=== PATIENT | female | born 1980 | race Two or more races ===

== ENCOUNTER → 2020-10-12 15:00 | Outpatient (CLI) | payer OTHER | END | disposition home or self-care (01) | LOC: PPH VACUNA 15:00 | DX: Z23 Encounter for immunization (principal) ==

== ENCOUNTER 2020-11-02 08:00 | Outpatient (CLI) | payer OTHER | END 2020-11-02 08:30 | disposition home or self-care (01) | LOC: PPH VACUNA 08:00 | DX: Z23 Encounter for immunization (principal) ==

== ENCOUNTER 2021-06-16 15:00 | Outpatient (CLI) | payer OTHER | END 2021-06-16 15:10 | disposition home or self-care (01) | LOC: PPH VACUNA 15:00 | PROVIDERS: ATTEND Emergency Medicine Pediatric Emergency Medicine | DX: Z23 Encounter for immunization (principal) ==

== ENCOUNTER 2022-09-14 14:05 | Outpatient (CLI) | payer OTHER | END 2022-09-14 16:45 | disposition home or self-care (01) | LOC: PRENATAL 14:05 | PROVIDERS: ATTEND Obstetrics & Gynecology Maternal & Fetal Medicine | DX: O35.9XX0 Maternal care for (suspected) fetal abnormality and damage, unspecified, not applicable or unspecified (principal); O40.1XX0 Polyhydramnios, first trimester, not applicable or unspecified; O09.529 Supervision of elderly multigravida, unspecified trimester; Z3A.21 21 weeks gestation of pregnancy ==

== ENCOUNTER 2022-10-14 11:25 | Outpatient (CLI) | payer OTHER | END 2022-10-14 15:00 | disposition home or self-care (01) | LOC: PRENATAL 11:25 | PROVIDERS: ATTEND Obstetrics & Gynecology Maternal & Fetal Medicine | DX: O26.849 Uterine size-date discrepancy, unspecified trimester (principal); O36.8199 Decreased fetal movements, unspecified trimester, other fetus; O09.529 Supervision of elderly multigravida, unspecified trimester; O40.1XX0 Polyhydramnios, first trimester, not applicable or unspecified; O28.5 Abnormal chromosomal and genetic finding on antenatal screening of mother; Z3A.35 35 weeks gestation of pregnancy ==

== ENCOUNTER 2022-11-03 10:33 | Inpatient (IN) | payer OTHER ==
[~2022-11-03] VITALS: Ht 154.9 cm; Wt 2.7 kg
[2022-11-03] MEDS ORDERED: FOLIC ACID20 MG PO (12:10)
[2022-11-03] MEDS ORDERED: PRENATAL CAPLE1 EAC1 PO (12:10)
== END 2022-11-06 13:40 | disposition home or self-care (01) | DRG 807 ==
LOC: OB/GYN 10:33 → LDR 10:33 → OB/GYN 13:05 → LDR 13:30 → OB/GYN 15:43
PROVIDERS: ADMIT Specialist; ATTEND Specialist
PROC: 10E0XZZ Delivery of Products of Conception, External Approach (ICD-10-PCS; principal; 2022-11-03)
PROC: 4A1HXCZ Monitoring of Products of Conception, Cardiac Rate, External Approach (ICD-10-PCS; 2022-11-03)
DX: O80 Encounter for full-term uncomplicated delivery (principal); Z37.0 Single live birth; Z3A.38 38 weeks gestation of pregnancy; Z20.822 Contact with and (suspected) exposure to COVID-19

== ENCOUNTER → 2022-11-25 | Day surgery (SDC) | payer OTHER ==
[~2022-11-25] MED LIST: FOLIC ACID20 MG PO; IBUPROFEN800 MG PO; PRENATAL CAPLE1 EAC1 PO
== END | disposition home or self-care (01) ==
LOC: CIR.AMB 06:51
PROVIDERS: ATTEND Specialist
DX: Z30.2 Encounter for sterilization (principal); Z20.822 Contact with and (suspected) exposure to COVID-19; Z64.1 Problems related to multiparity; E11.9 Type 2 diabetes mellitus without complications; I10 Essential (primary) hypertension

== ENCOUNTER 2022-12-03 13:05 | Emergency (ER) | payer OTHER ==
[~2022-12-03] VITALS: Ht 154.9 cm; Wt 47.6 kg
== END 2022-12-03 17:44 | disposition home or self-care (01) ==
LOC: ER 13:05
DX: J06.9 Acute upper respiratory infection, unspecified (principal); B34.9 Viral infection, unspecified; Z87.09 Personal history of other diseases of the respiratory system; Z20.822 Contact with and (suspected) exposure to COVID-19